=== PATIENT | male | born 1955 | race Caucasian/White ===

== ENCOUNTER 2017-05-04 21:57 | Emergency (ER) | payer OTHER ==
[~2017-05-04] VITALS: Ht 172.7 cm; Wt 98.5 kg
[~2017-05-04 21:57] MED LIST: LORT7.5T3 PO; PENI500T PO
[2017-05-04 22:00] VITALS: BP 182/101; PULSE 99; RESP 22; TEMP 97.7; O2SAT 97
[2017-05-04] MEDS ORDERED: TRAM50TA PO (22:20)
[2017-05-04] MEDS ORDERED: METO100T PO (22:20)
[2017-05-04] MEDS ORDERED: ROPI0.5T PO (22:20)
[2017-05-04] MEDS ORDERED: LYRI75CA PO (22:20)
[2017-05-04] MEDS ORDERED: TEMA30CA PO (22:20)
[2017-05-04] MEDS ORDERED: DULO1CAP3 PO (22:20)
--- NOTE | 2017-05-04 22:28 | PD ---
HPI Chief Complaint: Flank/Kidney Pain Time Seen by Provider: 22:22 Travel History International Travel<30 days: No Contact w/Intl Traveler<30days: No Traveled to known affect area: No History of Present Illness HPI 61-year-old male presents to the emergency department for complaint of severe right-sided flank pain radiating to the right groin with nausea without vomiting. Patient states symptoms have worsened acutely today but been present over the past 2 weeks. Patient has history of hypertension and previous kidney stones. Patient denies tobacco use. Patient denies midline abdominal pain. No chest pain or shortness of breath. Patient is unable to identify exacerbating or alleviating factors. Patient rates pain 8/10 in intensity. Patient states earlier at time of onset of symptoms approximately 2 weeks ago discomfort was more of an aggravation and at that time did respond to acetaminophen but not today. Patient denies any hematuria. Patient's had no dysuria frequency urgency fever or chills. Patient denies other concerns or complaints. PFSH Past Medical History Narrative Medical arrhythmia hypertension dyslipidemia kidney stones tonsillectomy lithotripsy herniorrhaphy; no tobacco use; nursing notes reviewed Cardiovascular Problems: Yes (arrhythmia) High Cholesterol: Yes Hypertension: Yes Past Surgical History Ear Surgery: Yes Tonsillectomy: Yes Other Surgery: Yes (RT INGUINAL HERNIA REPAIR) Social History Alcohol Use: No Tobacco Use: No Substance Use: No Allergies-Medications (Allergen,Severity, Reaction): Coded Allergies: No Known Allergies (Verified Adverse Reaction, Unknown, 05/04/17) Reported Meds & Prescriptions Reported Meds & Active Scripts Active Reported Duloxetine DR (Duloxetine HCl) 60 Mg Capdr 60 Mg PO DAILY Ropinirole 0.5 Mg Tab 0.5 Mg PO HS Metoprolol Tartrate 100 Mg Tab 100 Mg PO BID Tramadol (Tramadol HCl) 50 Mg Tab 50 Mg PO ONCE Lyrica (Pregabalin) 75 Mg Cap 75 Mg PO TID Temazepam 30 Mg Cap 30 Mg PO HS Review of Systems Except as stated in HPI: all other systems reviewed are Neg General / Constitutional: No: Fever, Chills HENT: No: Congestion Cardiovascular: No: Chest Pain or Discomfort Respiratory: No: Shortness of Breath Gastrointestinal: Positive: Nausea, No: Vomiting, Diarrhea, Abdominal Pain Genitourinary: Positive: Flank Pain, No: Hematuria Musculoskeletal: No: Myalgias, Arthralgias Skin: No Rash Neurologic: No: Weakness Psychiatric: No: Anxiety Hematologic/Lymphatic: No: Lymph Node Enlargement Physical Exam Narrative GENERAL: Well-developed well-nourished female in obvious discomfort no respiratory distress SKIN: Warm and dry. HEAD: Normocephalic. EYES: No scleral icterus. No injection or drainage. NECK: Supple, trachea midline. No JVD or lymphadenopathy. CARDIOVASCULAR: Regular rate and rhythm without murmurs, gallops, or rubs. RESPIRATORY: Breath sounds equal bilaterally. No accessory muscle use. GASTROINTESTINAL: Abdomen soft, non-tender, nondistended. MUSCULOSKELETAL: No cyanosis, or edema. BACK: Nontender without obvious deformity. Right-sided flank tenderness to percussion and palpation /CVA tenderness. Data Data Last Documented VS Vital Signs Date Time Temp Pulse Resp B/P (MAP) Pulse Ox O2 Delivery O2 Flow Rate FiO2 05/04/17 23:40 94 18 168/96 (120) 94 Room Air 05/04/17 22:00 97.7 Orders Orders Complete Blood Count With Diff (05/04/17 22:22) Comprehensive Metabolic Panel (05/04/17 22:22) Urinalysis - C+S If Indicated (05/04/17 22:22) Ct Abd/Pel W/O Iv Contrast (05/04/17 22:22) Ecg Monitoring (05/04/17 22:22) Iv Access Insert/Monitor (05/04/17 22:22) Ketorolac Inj (Toradol Inj) (05/04/17 22:30) Ondansetron Inj (Zofran Inj) (05/04/17 22:30) Sodium Chloride 0.9% Flush (Ns Flush) (05/04/17 22:30) Morphine Inj (Morphine Inj) (05/04/17 22:30) Tamsulosin (Flomax) (05/05/17 00:00) Ed Discharge Order (05/04/17 23:55) Labs Laboratory Tests Test 05/04/17 22:30 05/04/17 22:35 White Blood Count 16.8 TH/MM3 Red Blood Count 4.94 MIL/MM3 Hemoglobin 15.2 GM/DL Hematocrit 45.4 % Mean Corpuscular Volume 91.9 FL Mean Corpuscular Hemoglobin 30.7 PG Mean Corpuscular Hemoglobin Concent 33.4 % Red Cell Distribution Width 12.5 % Platelet Count 265 TH/MM3 Mean Platelet Volume 9.8 FL Neutrophils (%) (Auto) 68.5 % Lymphocytes (%) (Auto) 16.8 % Monocytes (%) (Auto) 10.9 % Eosinophils (%) (Auto) 3.4 % Basophils (%) (Auto) 0.4 % Neutrophils # (Auto) 11.5 TH/MM3 Lymphocytes # (Auto) 2.8 TH/MM3 Monocytes # (Auto) 1.8 TH/MM3 Eosinophils # (Auto) 0.6 TH/MM3 Basophils # (Auto) 0.1 TH/MM3 CBC Comment DIFF FINAL Differential Comment Blood Urea Nitrogen 21 MG/DL Creatinine 1.90 MG/DL Random Glucose 111 MG/DL Total Protein 7.6 GM/DL Albumin 3.8 GM/DL Calcium Level 8.3 MG/DL Alkaline Phosphatase 81 U/L Aspartate Amino Transf (AST/SGOT) 15 U/L Alanine Aminotransferase (ALT/SGPT) 24 U/L Total Bilirubin 0.5 MG/DL Sodium Level 137 MEQ/L Potassium Level 3.6 MEQ/L Chloride Level 102 MEQ/L Carbon Dioxide Level 27.1 MEQ/L Anion Gap 8 MEQ/L Estimat Glomerular Filtration Rate 36 ML/MIN Urine Collection Type VOIDED Urine Color YELLOW Urine Turbidity CLEAR Urine pH 5.5 Urine Specific Vance 1.026 Urine Protein TRACE mg/dL Urine Glucose (UA) NEG mg/dL Urine Ketones NEG mg/dL Urine Occult Blood MOD Urine Nitrite NEG Urine Bilirubin NEG Urine Leukocyte Esterase NEG Urine RBC 4-9 /hpf Urine WBC 0-2 /hpf Urine Squamous Epithelial Cells 0-1 /hpf Urine Mucus RARE /lpf Microscopic Urinalysis Comment CULT NOT INDICATED MDM Medical Decision Making Medical Screen Exam Complete: Yes Emergency Medical Condition: Yes Medical Record Reviewed: Yes Interpretation(s) CBC & BMP Diagram 05/04/17 22:30 Total Protein 7.6, Albumin 3.8, Calcium Level 8.3 L, Alkaline Phosphatase 81, Aspartate Amino Transf (AST/SGOT) 15, Alanine Aminotransferase (ALT/SGPT) 24, Total Bilirubin 0.5 Vital Signs Date Time Temp Pulse Resp B/P (MAP) Pulse Ox O2 Delivery O2 Flow Rate FiO2 05/04/17 23:40 94 18 168/96 (120) 94 Room Air 05/04/17 23:15 103 18 170/109 (129) 93 Room Air 05/04/17 23:01 98 18 164/107 (126) 94 Room Air 05/04/17 22:20 105 18 05/04/17 22:00 97.7 99 22 182/101 (128) 97 UA: blood Differential Diagnosis Renal colic biliary colic abdominal aortic aneurysm UTI Narrative 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 performed IV access obtained specimens collected and sent for resulting patient administered morphine 4 mg IV Zofran 4 mg IV and Toradol [address] kidney stone protocol ordered Patient with good symptomatic response to medication and identified to have distal ureteral nephrolithiasis 3 mm x 5 mm will administer first dose of Flomax in the emergency department Patient is aware of renal insufficiency and need for aggressive hydration follow -up with his primary care provider is encouraged to discontinue NSAID use Sepsis Criteria SIRS Criteria (2 or more): Heart rate over 90, RR > 20 or PaCO2 < 32 Diagnosis Primary Impression: Obstructive uropathy Additional Impressions: Nephrolithiasis Renal insufficiency Referrals: Primary Care Physician call for appointment Urologist call for appointment Follow-up with on-call urologist Dr. Steven Patient Instructions: Narcotic given in the ED, General Instructions Additional Instructions: Increase fluid hydration Strain urine Take medications as prescribed Avoid use of nonsteroidal anti-inflammatory medication such as Advil/Motrin/ ibuprofen/Aleve/Naprosyn/naproxen Follow-up with your primary care provider Follow-up with urologist Return to the emergency department for any concerns or change in condition Take acetaminophen/Tylenol as needed for fever 100.4F or greater Med/Other Pt SpecificInfo: Prescription(s) given Scripts Tamsulosin (Flomax) 0.4 Mg Cap 0.4 MG PO HS for Manage Prostate Problems, #7 CAP 0 Refills Prov: Gabrielle Leo MD 05/05/17 Ondansetron Odt (Zofran Odt) 4 Mg Tab 4 MG SL Q6HR Y for Nausea/Vomiting, #10 TAB 0 Refills Prov: Gabrielle Leo MD 05/05/17 Oxycodone-Acetaminophen (Percocet) 5-325 mg Tab 1 TAB PO Q6H Y for PAIN, #12 TAB 0 Refills Prov: Gabrielle Leo MD 05/05/17 Disposition: 01 DISCHARGE HOME Condition: Stable Gabrielle Leo MD May 04, 2017 22:28
[2017-05-04] MEDS ORDERED: ONDANSETRON HCL 4 MG/2 ML VIAL IV PUSH ONE (22:30)
[2017-05-04] MEDS ORDERED: SODIUM CHLORIDE 0.9% FLUSH 10 ML FLUSH IVF PRN (22:30)
[2017-05-04] MEDS ORDERED: MORPHINE SULFATE 4 MG/ML INJ IV PUSH ONE (22:30)
[2017-05-04] MEDS ORDERED: KETOROLAC TROMETHAMINE 30 MG/ML (IVP) VIAL IV PUSH ONE (22:30)
--- NOTE | 2017-05-04 22:56 | RADRPT ---
EXAM DATE/TIME: 05/04/2017 22:38 [facility] COMPARISON: No previous studies available for comparison. INDICATIONS : Right flank pain. ORAL CONTRAST: No oral contrast ingested. RADIATION DOSE: 22.75 CTDIvol (mGy) MEDICAL HISTORY : Hypertension. SURGICAL HISTORY : Inguinal hernia repair. ENCOUNTER: Initial ACUITY: 2 weeks PAIN SCALE: 8/10 LOCATION: Right flank TECHNIQUE: Volumetric scanning of the abdomen and pelvis was performed. Using automated exposure control and ad justment of the mA and/or kV according to patient size, radiation dose was kept as low as reasonably achievable to obtain optimal diagnostic quality images. DICOM format image data is available electro nically for review and comparison. FINDINGS: LOWER LUNGS: The visualized lower lungs are clear. LIVER: Homogeneous density without lesion. There is no dilation of the biliary tree. No calcified gallston es. SPLEEN: Normal size without lesion. PANCREAS: Within normal limits. KIDNEYS: There is a 3 x 5 x 5 mm stone of the distal right ureter, just above the ureterovesical junction. The re is mild right-sided hydronephrosis and hydroureter. No stones or obstruction on the left. There is a 6.3 cm benign-appearing left renal cyst. ADRENAL GLANDS: Within normal limits. VASCULAR: There is no aortic aneurysm. BOWEL/MESENTERY: The stomach, small bowel, and colon demonstrate no acute abnormality. There is no free intraperitone al air or fluid. ABDOMINAL WALL: Within normal limits. RETROPERITONEUM: There is no lymphadenopathy. BLADDER: No wall thickening or mass. REPRODUCTIVE: Within normal limits. INGUINAL: There is no lymphadenopathy or hernia. MUSCULOSKELETAL: Within normal limits for patient age. CONCLUSION: 3 x 5 x 5 mm distal right ureteral calculus causing mild obstructive uropathy. 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 Jose Alejandro Junior MD on May 04, 2017 at 22:52 Board Certified Radiologist. This report was verified electronically.
[2017-05-04 23:01] VITALS: BP 164/107; PULSE 98; RESP 18; O2SAT 94
[2017-05-04 23:08] LABS: BLOOD, URINE MOD (NEG); GLUCOSE,URINE NEG (NEG); KETONE, URINE NEG (NEG); NITRITE,URINE NEG (NEG); PH, URINE 5.5 (5.0-8.5)
[2017-05-04 23:09] LABS: AUTOMATED NEUTROPHIL # 11.5 TH/MM3 (1.8-7.7); BASOPHIL # 0.1 TH/MM3 (0-0.2); BASOPHIL % 0.4 % (0.0-2.0); EOSINOPHIL # 0.6 TH/MM3 (0-0.4); EOSINOPHIL % 3.4 % (0.0-4.0); HEMATOCRIT 45.4 % (39.0-51.0); HEMO FLAGS DIFF FINAL; LYMPH % 16.8 % (9.0-44.0); LYMPHOCYTE # 2.8 TH/MM3 (1.0-4.8); MEAN CELL VOLUME 91.9 FL (80.0-100.0); MEAN CORPUSCULAR HEMOGLOBIN 30.7 PG (27.0-34.0); MEAN CORPUSCULAR HGB CONC 33.4 % (32.0-36.0); MONO % 10.9 % (0.0-8.0); NEUT % 68.5 % (16.0-70.0); PLATELET COUNT 265 TH/MM3 (150-450); RED BLOOD COUNT 4.94 MIL/MM3 (4.50-5.90); RED CELL DISTRIBUTION WIDTH 12.5 % (11.6-17.2); WHITE BLOOD COUNT 16.8 TH/MM3 (4.0-11.0)
[2017-05-04 23:15] VITALS: BP 170/109; PULSE 103; RESP 18; O2SAT 93
[2017-05-04 23:19] LABS: CHLORIDE 102 MEQ/L (98-107); POTASSIUM 3.6 MEQ/L (3.5-5.1); SODIUM (NA) 137 MEQ/L (136-145)
[2017-05-04 23:23] LABS: ANION GAP 8 MEQ/L (5-15); BICARBONATE 27.1 MEQ/L (21.0-32.0); BLOOD UREA NITROGEN 21 MG/DL (7-18)
[2017-05-04 23:26] LABS: ALT (GPT) 24 U/L (12-78); AST (GOT) 15 U/L (15-37); GLOMERULAR FILTRATION RATE 36 ML/MIN (>89)
[2017-05-04 23:28] LABS: TOTAL BILIRUBIN ADULT 0.5 MG/DL (0.2-1.0)
[2017-05-04 23:29] LABS: ALKALINE PHOSPHATASE 81 U/L (45-117)
[2017-05-04 23:36] LABS: METHOD OF COLLECTION VOIDED; MUCUS URINE RARE /lpf (OCC); URINE COLOR YELLOW (YELLW/STRAW); WBC, URINE 0-2 /hpf (0-5)
[2017-05-04 23:37] LABS: SQUAMOUS EPITHELIAL CELL URINE 0-1 /hpf (0-5)
[2017-05-04 23:38] LABS: COMMENT (UR) CULT NOT INDICATED; CULTURE IF INDICATED CULT NOT INDICATED
[2017-05-04 23:40] VITALS: BP 168/96; PULSE 94; RESP 18; O2SAT 94
[2017-05-05] MEDS ORDERED: ZOFR4TAB3 SL
[2017-05-05] MEDS ORDERED: TAMS5CAP PO
[2017-05-05] MEDS ORDERED: PERC5TAB12 PO
[2017-05-05] MEDS ORDERED: TAMSULOSIN HCL 0.4 MG CAP PO ONE
[2017-05-05 00:05] VITALS: RESP 18
== END 2017-05-05 00:18 | disposition home or self-care (01) ==
LOC: PHED 21:57
DX: N13.9 Obstructive and reflux uropathy, unspecified (principal); N20.2 Calculus of kidney with calculus of ureter; N28.9 Disorder of kidney and ureter, unspecified; I10 Essential (primary) hypertension; E78.00 Pure hypercholesterolemia, unspecified; Z87.442 Personal history of urinary calculi; Z79.899 Other long term (current) drug therapy
CPT/HCPCS: 74176; 80053; 81001; 85025; 96374; 96375; 99285; J1885; J2270; J2405